=== PATIENT | male | born 2000 | race Caucasian/White ===

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

== ENCOUNTER 2022-07-28 13:08 | Emergency (ER) | payer BC, MEDICARE, MEDICAID ==
[~2022-07-28] VITALS: Ht 190.5 cm; Wt 65.0 kg
[2022-07-28 14:14] LABS: BASOPHILS # (AUTO) 0.1 X10'3 (0-0.2); BASOPHILS % (AUTO) 1.3 % (0-1); EOSINOPHILS # (AUTO) 0.2 X10'3 (0-0.9); EOSINOPHILS % (AUTO) 3.3 % (0-6); HEMATOCRIT 41.2 % (42.0-52.0); LYMPHOCYTES # (AUTO) 2.3 X10'3 (1.1-4.8); LYMPHOCYTES % (AUTO) 34.2 % (21-51); MEAN CORPUSCULAR HEMOGLOBIN 30.8 PG (27.0-31.0); MEAN CORPUSCULAR VOLUME 90.6 FL (78-98); MEAN PLATELET VOLUME 7.2 FL (7.4-10.4); MONOCYTES # (AUTO) 0.6 X10'3 (0-0.9); MONOCYTES % (AUTO) 8.4 % (2-12); NEUTROPHILS # (AUTO) 3.6 X10'3 (1.8-7.7); NEUTROPHILS % (AUTO) 52.8 % (42-75); PLATELET COUNT 252 X10'3 (140-440); RED BLOOD COUNT 4.55 X10'6 (4.70-6.10); RED CELL DISTRIBUTION WIDTH 13.8 % (11.5-14.5); WHITE BLOOD COUNT 6.8 X10'3 (4.5-11.0)
[2022-07-28 14:26] LABS: ALANINE AMINOTRANSFERASE 39 U/L (12-78); ALBUMIN/GLOBULIN RATIO 1.2 (1.1-1.5); ALKALINE PHOSPHATASE 57 IU/L (20-180); ANION GAP 5 (8-16); ASPARTATE AMINO TRANSFERASE 25 U/L (10-37); BILIRUBIN,TOTAL 0.3 MG/DL (0.1-1.0); BLOOD UREA NITROGEN 9 MG/DL (7-18); BUN/CREATININE RATIO 10.2 (5.4-32.0); CHLORIDE 105 MMOL/L (99-107); CREATININE 0.88 MG/DL (0.60-1.10); GLUCOSE 63 MG/DL (70-104); POTASSIUM 4.2 MMOL/L (3.5-5.1); SODIUM 142 MMOL/L (135-145); TOTAL CARBON DIOXIDE 32.3 MMOL/L (24-32); TOTAL PROTEIN 7.4 G/DL (6.4-8.2); eGFR > 90 ML/MIN
[2022-07-28 14:43] LABS: ETHANOL < 0.010 GM/DL (0.0-0.010)
[2022-07-28] MEDS ORDERED: LORazepam 1 MG tablet PO ONE (15:25)
--- NOTE | 2022-07-28 17:44 | NUR ---
Patient appears anxious. Patient states he was diagnosed with Bi-polar d/o but he know he has Schizophrenia. Patient states he has almost many times this year. Patient states he has had seizures since January but has not seen anyone for this. 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 Patient eyes PERRL. Denies seeing things in right eye. Patient's last BM was 3 days ago but does not want anything for it. Patient wants his body to work naturally. Patient denies suicidal/homicidal ideation. Patient brought in by [facility]. Grandmother was scared of patient. Patient states he has been switching his meds around and is upset with his Psychiatrist and states that she only sees him monthly and that is not enough. Patient appears bizarre and disorganized. Patient stated he has done psychodelics before.
[2022-07-28] MEDS ORDERED: quetiapine 100mg tablet PO STA (19:07)
[2022-07-28] MEDS ORDERED: OLANZapine 2.5MG tablet PO STA (19:07)
--- NOTE | 2022-07-28 19:12 | NUR ---
PT gave urine specimen after stating "there is something severely wrong with my kidneys, I can not actually pee "
--- NOTE | 2022-07-28 19:12 | NUR ---
PT is in tears, asking for medication "I am having a SCHIZOPHRENIC EPISODE, PLEASE HELP ME" "I don't know where I am I can keep my eyes open for over 20 hours". Physician consulted, 10mg zyprexa and 100 mg seroquel ordered.
[2022-07-28 19:14] LABS: CLARITY,URINE CLEAR (Clear); COLOR,URINE YELLOW (Yellow); GLUCOSE, URINE NEGATIVE (Neg); KETONES,URINE NEGATIVE (Neg); LEUKOCYTE ESTERASE ,URINE NEGATIVE (Neg); NITRITES, URINE NEGATIVE (Neg); OCCULT BLOOD,URINE NEGATIVE (Neg); PROTEIN,URINE NEGATIVE (Neg); UROBILINOGEN,URINE 0.2 E.U/dL (0.2-1.0)
[2022-07-28 19:15] LABS: UA COLLECTION TYPE NON-SPECIFIED
[2022-07-28 19:19] LABS: URINE AMPHETAMINE SCREEN NEGATIVE (Neg); URINE BARBITUATE SCREEN NEGATIVE (Neg); URINE BENZODIAZEPINES SCREEN POSITIVE (Neg); URINE CANNABINOID SCREEN POSITIVE (Neg); URINE COCAINE SCREEN NEGATIVE (Neg); URINE METHADONE SCREEN NEGATIVE (Neg); URINE OPIATE SCREEN NEGATIVE (Neg); URINE PHENCYCLIDINE SCREEN NEGATIVE (Neg)
--- NOTE | 2022-07-28 19:23 | NUR ---
Pt took 10mg zyprexa, but refused the seroquel stating "seroquel has demonic possesion in that pill."
--- NOTE | 2022-07-29 02:00 | NUR ---
pt asleep supine, RR 16
--- NOTE | 2022-07-29 04:00 | NUR ---
pt up to use the restroom
--- NOTE | 2022-07-29 05:56 | NUR ---
"I still don't know whats going on the dreams are like hell."
--- NOTE | 2022-07-29 06:07 | NUR ---
PT states " I am actually kalin to [facility] hurt myself if I am still in here in a couple days i am not being shipped to another [facility], government agents, I hope you know the government is evil."
--- NOTE | 2022-07-29 06:30 | NUR ---
Pt is lying in bed, appears to be sleeping.
--- NOTE | 2022-07-29 08:30 | NUR ---
Pt lying on his back in bed resting.
--- NOTE | 2022-07-29 08:50 | NUR ---
Pt is awake and eating his breakfast.
[2022-07-29] MEDS ORDERED: olanzapine 10mg tablet PO ONE (09:15)
[2022-07-29] MEDS ORDERED: LORazepam 1 MG tablet PO ONE (09:15)
--- NOTE | 2022-07-29 09:30 | NUR ---
Pt escalated, he became upset and hyperverbal with loud tangential speech. Pt c/o hallucinations. Pt stating he doesn't remember what happened to get him here, that they switched his medications from Adderal to Xanax and he had a break. Pt stating he doesn't need help, he needs to go home and smoke weed. Security was called for a show of support. This RN attempted verbal de-escalation and pt agreed to take some oral medication. Obtained orders from for PO Ativan 2 mg and Zyprexa 10 mg which the pt took. Pt tearful expressing that he tried to get help. He adamantly denies SI stating his friend committed suicide 3 years ago and he could never do that to anybody. Pt denies HI, pt denies CAH. Pt admits to stating he sees "everything." Pt verbalized that he would like to be discharged so he can go talk to [facility] from [facility] and smoke marijuana as this is the only thing that quiets the voices. After the medication and 1:1 with this RN, pt is sitting calmly in bed requesting more coffee.
--- NOTE | 2022-07-29 10:11 | NUR ---
Pt is lying quietly and calmly on his back in bed.
--- NOTE | 2022-07-29 10:54 | NUR ---
Pt is lying in bed on his back, appears to be sleeping. RR 20.
--- NOTE | 2022-07-29 12:50 | NUR ---
Pt lying in bed resting.
--- NOTE | 2022-07-29 14:06 | NUR ---
Pt ambulated to the bathroom.
--- NOTE | 2022-07-29 16:01 | NUR ---
Pt approached the nurse's station to vent about how he wants to go home, how he doesn't know what is going on or why he is here. Attempted reorientation. Pt feels that his grandmother will not wish for him to return home, that everyone thinks he's a joke and should just . Therapeutic listening and conversation provided. Verbal de-escalation and redirection provided. Pt returned to his bed.
--- NOTE | 2022-07-29 16:18 | NUR ---
Pt requested coffee, decaf coffee was provided to him.
--- NOTE | 2022-07-29 16:50 | NUR ---
Per Adalberto with [facility], he had a conversation with pt's great grandmother whom he lives with and pt is able to return home once stable.
--- NOTE | 2022-07-29 19:15 | NUR ---
One to one with the patient to assess severity of mental health symptoms. The patient repeatedly saying he should not be here and that he just needs to go home. He has concrete thinking. He becomes increasingly anxious and agitated with one to one intervention. Encouraged him to take zyprexa at and order was received by Heather KIMBALL.
[2022-07-29] MEDS: olanzapine 10mg tablet PO SCH ×2 (19:55→20:00)
--- NOTE | 2022-07-29 19:57 | NUR ---
The patient became agitated when offered zyprexa. Stated he did not want to be dosed. "How I take medications is I take them all at once" Stated he was lied to and he is perseverating that he doesn't need to be here"
--- NOTE | 2022-07-29 21:33 | NUR ---
The patient has been accepted at [facility] for an AM transport. He will be going to unit 200. The accepting MD is Dr. Coello. Nurse to nurse complete but if needed they can be contacted for an update at [phone].
--- NOTE | 2022-07-29 23:08 | NUR ---
The patient currently appears to be sleeping
--- NOTE | 2022-07-30 00:09 | NUR ---
Patient up at the nursing station asked for and received fresh water and snack
--- NOTE | 2022-07-30 01:30 | NUR ---
The patient appears to be sleeping
--- NOTE | 2022-07-30 03:03 | NUR ---
The patient appears to be sleeping
[2022-07-30 05:13] VITALS: BP 108/64
--- NOTE | 2022-07-30 05:42 | NUR ---
The patient appears to be sleeping at this time
--- NOTE | 2022-07-30 06:30 | NUR ---
Received report and assumed care of patient that is sleeping. No s/sx of distress.
--- NOTE | 2022-07-30 08:20 | NUR ---
Patient awake and up to the bathroom. He expresses his desire to leave, "I don't need psych meds, they do absolutely nothing for me, and I won't take them. They took my marijuana and cigarettes away. Marijuana cures all my problems."
[2022-07-30] MEDS: olanzapine 10mg tablet PO SCH (08:50)
--- NOTE | 2022-07-30 08:53 | NUR ---
Patient has changed his mind, "I feel like I'm having a psychotic break or something, so I'll take the medicine."
--- NOTE | 2022-07-30 09:42 | NUR ---
Patient appears to be asleep with his whole body covered head to toe in blankets.
--- NOTE | 2022-07-30 10:03 | NUR ---
Patient has been picked up by clamp truck driver, and is being transferred to [place].
== END 2022-07-30 10:07 | disposition still patient (30) ==
LOC: ER 13:08
DX: F20.9 Schizophrenia, unspecified (principal); Z20.822 Contact with and (suspected) exposure to COVID-19; R45.851 Suicidal ideations; F31.9 Bipolar disorder, unspecified; Z88.0 Allergy status to penicillin; Z88.1 Allergy status to other antibiotic agents; Z79.899 Other long term (current) drug therapy; Z88.8 Allergy status to other drugs, medicaments and biological substances
CPT/HCPCS: 36415; 80053; 80305; 80320; 81003; 84443; 85025; 87811; 99285